=== PATIENT | male | born 1975 | race Caucasian/White ===

== ENCOUNTER 2017-06-22 09:10 | Emergency (ER) | payer BC, OTHER ==
[~2017-06-22] VITALS: Ht 180.3 cm; Wt 88.5 kg
--- NOTE | 2017-06-22 10:57 | Diagnostic Imaging Report ---
Left knee at 10:39. Indication: Left knee pain Findings: Three views were obtained. There are no prior studies available for comparison. There is no fracture, dislocation or acute bony abnormality evident. The knee joint is fairly well maintained. There is mild narrowing of both the medial and lateral compartments and the patellofemoral space. The soft tissues are unremarkable. Impression: 1. There is no evidence for an acute bony abnormality. 2. If there is clinical concern regarding internal derangement, an MRI would be recommended for further study. Dictated by: Dictated on workstation # [id number]
--- NOTE | 2017-06-22 11:06 | ED Lower Extremity ---
General Chief Complaint: Lower Extremity Stated Complaint: LT KNEE PAIN Nursing Triage Note: ARRIVED VIA AMB TO ROOM 09. STATES HE HEARD A "POP" IN HIS LEFT KNEE APPX 3 WEEKS AGO AND IT HAS HURT SINCE. CALLED INTO WORK TODAY FOR THE PAIN. STATES HE HAS AN APPT WITH [facility] ON TUESDAY. Nursing Sepsis Screen: No Definite Risk Source: patient Exam Limitations: no limitations History of Present Illness Date Seen by Provider: Jun 22, 2017 Time Seen by Provider: 11:01 Initial Comments The patient is a 41-year-old white male who reports that about 3 weeks ago he had a sharp loud pop in his left knee after which she began to have knee pain. He has no past history of injury. Although he played sports he did not have any injuries. He reports that this morning with left-sided he could scarcely get out of bed. He was awake much of the night.. He has not noted swelling or redness. He has an appointment to see Dr. Dominguez at 1315 today. Pain/Injury Location: left knee Method of Injury: unknown Allergies and Home Medications Allergies Coded Allergies: No Known Drug Allergies (Unverified , 06/22/17) Home Medications No Active Prescriptions or Reported Meds Patient Home Medication List Home Medication List Reviewed: Yes Constitutional: see HPI EENTM: no symptoms reported Respiratory: no symptoms reported Cardiovascular: no symptoms reported Gastrointestinal: no symptoms reported Musculoskeletal: see HPI, joint pain Skin: no symptoms reported Psychiatric/Neurological: No Symptoms Reported Past Fzjijgs-Olqwso-Gvilgc Hx Patient Social History Recent Foreign Travel: No Contact w/Someone Who Travel: No Recent Infectious Disease Expo: No Recent Hopitalizations: No Past Medical History Surgeries: Yes Orthopedic Respiratory: No Cardiac: No Neurological: No Genitourinary: No Gastrointestinal: No Musculoskeletal: No Endocrine: No HEENT: No Cancer: No Psychosocial: No Integumentary: No Blood Disorders: No Physical Exam Vital Signs Vital Signs - First Documented 06/22/17 09:20 Temp 98.0 Pulse 91 Resp 18 B/P (MAP) 115/84 (94) Pulse Ox 100 O2 Delivery Room Air Capillary Refill : Less Than 3 Seconds General Appearance: mild distress HEENT: normal ENT inspection Neck: full range of motion Cardiovascular: normal peripheral pulses, regular rate, rhythm, no edema, no gallop, no JVD, no murmur Comments The left knee appears normal as compared to the right. There is no edema palpated there is no warmth or redness. The medial and lateral collateral ligaments are stable. There is no laxity with regard to anterior and posterior cruciates. The calf reveals no swelling or warmth. Progress/Results/Core Measures My Orders Orders - MARGARET BARRERA MD Knee, Left, 3 Views (06/22/17 10:07) Vital Signs/I&O 06/22/17 09:20 Temp 98.0 Pulse 91 Resp 18 B/P (MAP) 115/84 (94) Pulse Ox 100 O2 Delivery Room Air Blood Pressure Mean: 94 Departure Impression Primary Impression: left knee pain Disposition: 01 HOME, SELF-CARE Condition: Stable/Unchanged Departure-Patient Inst. Decision time for Depature: 11:06 Referrals: ARIK ADAMES MD (PCP/Family) Primary Care Physician Add. Discharge Instructions: All discharge instructions reviewed with patient and/or family. Voiced understanding. Take the x-ray disc to your 115 appointment Scripts No Active Prescriptions or Reported Meds MARGARET BARRERA MD Jun 22, 2017 11:06
[2017-06-22 11:19] VITALS: BP 115/84
== END 2017-06-22 11:19 | disposition home or self-care (01) ==
LOC: EDUNIT# 09:10 → ER 09:15
DX: M25.562 Pain in left knee (principal); X50.0XXA Overexertion from strenuous movement or load, initial encounter
CPT/HCPCS: 73562

== ENCOUNTER → 2017-06-25 | Outpatient (CLI) | payer BC ==
--- NOTE | 2017-06-25 12:30 | Diagnostic Imaging Report ---
PROCEDURE: MRI left joint lower extremity without contrast. TECHNIQUE: Multiplanar, multisequence non contrast-enhanced MRI of the left lower extremity was accomplished. INDICATION: Knee pain COMPARISON: There are no previous MRI examinations available for comparison. The plain film examination of the left knee performed on 06/22/2017 failed to show an acute abnormality. This study is less than optimal due to motion artifact. FINDINGS: On the coronal proton dense series there is a small 2.5 x 7.5 x 24 mm area of diminished signal in the subarticular region of the lateral half of the medial femoral condyle. There does appear to be associated bone edema in this area on the STIR series and I do suspect these findings are related to an osteochondral injury. This appearance and location are typical for osteochondritis dissecans.. There is also some irregularity of the articular surface of the medial femoral condyle in this area. There is no other abnormal signal arising from the osseous structures to suggest bone edema or a fracture. There is a band of increased signal extending through the substance of the lateral meniscus. This does not communicate with the articular surface and I suspect this finding is more likely due to degenerative disease than to a meniscus tear. The possibility that there is an intrasubstance tear should still be considered however. The medial meniscus is intact. The anterior and posterior cruciate ligaments, the quadriceps and infrapatellar tendons are intact. There is no sign of a tear of the medial collateral ligament. There is edema about the MCL. This does suggest a grade 1 sprain. The fibular collateral ligament, the biceps femoris tendon and the iliotibial band are intact. There is a small joint effusion present. There is no sign of a Brush's cyst. IMPRESSION: 1. 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 2. 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 3. There is edema about the medial collateral ligament but the MCL appears to be intact. The other major ligaments and tendons are unremarkable for an acute injury. 4. There is degenerative disease involving the articular surface of the medial femoral condyle. The knee joint is otherwise fairly well-maintained. Dictated by: Dictated on workstation # [id number]
== END ==
LOC: RAD 10:57
PROVIDERS: ATTEND Nurse Practitioner Family
DX: M25.562 Pain in left knee (principal); M17.12 Unilateral primary osteoarthritis, left knee
CPT/HCPCS: 73721